=== PATIENT | male | born 1955 | race Caucasian/White ===

== ENCOUNTER 2018-02-10 15:19 | Emergency (ER) | payer MEDICAID ==
[~2018-02-10] VITALS: Ht 170.2 cm; Wt 121.2 kg
[2018-02-10] MEDS ORDERED: PHENOBARBITAL15 MG PO (15:26)
[2018-02-10] MEDS ORDERED: COLACE100 MG PO (15:27)
[2018-02-10] MEDS ORDERED: TOPROL XL100 MG PO (15:27)
[2018-02-10] MEDS ORDERED: NORVASC10 MG PO (15:27)
[2018-02-10] MEDS ORDERED: ZONISAMIDE 100100 M1 PO (15:27)
[2018-02-10] MEDS ORDERED: HYDROCHLOROTHIA25 M2 PO (15:28)
[2018-02-10] MEDS ORDERED: ASPIR 8181 MG PO (15:28)
[2018-02-10] MEDS ORDERED: LATANOPROST 0.2.5 ML OPHTHALMIC (15:28)
[2018-02-10 16:18] LABS: ABSOLUTE BASOPHILS 0.1 thou/uL (0.0-0.2); ABSOLUTE EOSINOPHILS 0.3 thou/uL (0.0-0.7); ABSOLUTE LYMPHOCYTES 1.3 thou/uL (0.8-5.3); ABSOLUTE MONOCYTES 1.2 thou/uL (0.0-1.2); ABSOLUTE NEUTROPHILS 6.5 thou/uL (1.6-8.1); BASOPHILS 0.8 %; EOSINOPHILS 3.4 %; HEMATOCRIT 41.6 % (42.0-52.0); HEMOGLOBIN 13.9 gm/dL (14.0-18.0); LYMPHOCYTES 13.8 %; MCH 30.1 pg (26.0-34.0); MCHC 33.5 g/dL (28.0-37.0); MCV 89.9 fL (80.0-100.0); MONOCYTES 12.5 %; MPV 10.8 fl. (7.2-11.1); NUCLEATED RBCS 0 /100WBC; PLATELET COUNT* 230 thou/uL (150-400); POLYS 69.5 %; RBC 4.62 mil/uL (4.50-6.00); RDW-CV 15.4 % (10.5-14.5); WBC 9.4 thou/uL (4.0-11.0)
[2018-02-10 16:24] LABS: ANION GAP 12 mmol/L (7-16); BUN 30 mg/dL (7-18); CALCIUM 8.6 mg/dL (8.5-10.1); CHLORIDE 104 mmol/L (98-107); CO2 24 mmol/L (21-32); CREATININE 1.6 mg/dL (0.6-1.3); GLUCOSE 106 mg/dL (70-99); POTASSIUM 3.6 mmol/L (3.5-5.1); SODIUM 140 mmol/L (136-145)
[2018-02-10 16:34] LABS: ALBUMIN 3.4 g/dL (3.4-5.0); ALKALINE PHOSPHATASE 110 U/L (46-116); LIPASE 160 U/L (73-393); NT-PRO BRAIN NAT PEPTIDE 182 pg/mL (<300); SGOT 13 U/L (15-37); SGPT 14 U/L (30-65); TOTAL BILIRUBIN 0.4 mg/dL (<0.1-1.0); TOTAL PROTEIN 7.2 g/dL (6.4-8.2); TROPONIN-I LEVEL <0.06 ng/mL (<0.06)
[2018-02-10 16:56] LABS: BE -3.4 mmol/L (-2 to +3); HCO3 20.1 mmol/L (22.0-26.0); PCO2 31.8 mmHg (35.0-45.0); pH 7.418 (7.340-7.450)
[2018-02-10 17:10] LABS: URINE BILIRUBIN NEGATIVE (Negative); URINE BLOOD NEGATIVE (Negative); URINE CLARITY CLEAR; URINE COLOR YELLOW; URINE GLUCOSE-RANDOM NEGATIVE (Negative); URINE KETONES TRACE (Negative); URINE LEUKOCYTES-REFLEX NEGATIVE (Negative); URINE NITRITE-REFLEX NEGATIVE (Negative); URINE PROTEIN NEGATIVE (Negative); URINE SPECIFIC GRAVITY 1.025 (1.005-1.030); URINE UROBILINOGEN 0.2 E.U./dl (0.2-1.0)
[2018-02-10] MEDS ORDERED: LEVAQUIN 500 M500 M7 PO (17:25)
[2018-02-10 17:30] VITALS: BP 93/75
--- NOTE | 2018-02-11 15:55 | EKG ---
[place] [address] ELECTROCARDIOGRAM REPORT Name: PATTIE JOHNSON Room: [facility]#: [id number] Admission: 02/10/18 Attend Phys: Discharge: 02/10/18 Date of : 51 Report #: [id number] THIS REPORT FOR: //name// [facility] ED Test Date: 2018-02-10 Test Time: 15:23:02 Pat Name: PATTIE JOHNSON Department: Room: Gender: M [employer] Clerk: [place] : 1955 Requested By: Mary Kaur Order Number: [id number] Cheryl MD: Matt Woods Measurements Intervals [place] Rate: 87 P: 21 RI: 148 QRS: 18 QRSD: 96 T: 250 QT: 315 QTc: 379 Interpretive Statements Sinus rhythm Abnormal R-wave progression, early transition Borderline repolarization abnormality Nonspecific T-wave flattening No previous ECG available for comparison Electronically Signed On 02-11-2018 15:54:57 CDT by Matt Woods [email or web address] <ELECTRONICALLY SIGNED> By: Matt Woods MD, [facility] 02/11/18 1554 1523 1523 Matt Woods MD, FACC /EPI
== END 2018-02-10 17:30 | disposition home or self-care (01) ==
LOC: M.ERS 15:19
PROVIDERS: Personal Emergency Response Attendant
DX: J18.9 Pneumonia, unspecified organism (principal); Z88.0 Allergy status to penicillin